=== PATIENT | male | born 1985 | race Caucasian/White ===

== ENCOUNTER 2020-12-02 13:06 | Day surgery (SDC) | payer BC ==
[2020-11-27 15:23] VITALS: BMI 26.9
[2020-12-02 13:25] VITALS: TEMP 98
[2020-12-02 16:09] VITALS: BP 110/78; PULSE 65
== END 2020-12-02 15:40 | disposition home or self-care (01) ==
LOC: FASU-ENDO 13:06
PROVIDERS: ATTEND Internal Medicine Gastroenterology
PROC: 0DB68ZX Excision of Stomach, Via Natural or Artificial Opening Endoscopic, Diagnostic (ICD-10-PCS; 2020-12-02)
PROC: 0DB48ZX Excision of Esophagogastric Junction, Via Natural or Artificial Opening Endoscopic, Diagnostic (ICD-10-PCS; 2020-12-02)
PROC: 0DB98ZX Excision of Duodenum, Via Natural or Artificial Opening Endoscopic, Diagnostic (ICD-10-PCS; principal; 2020-12-02 14:41)
DX: K29.50 Unspecified chronic gastritis without bleeding (principal); K20.90 Esophagitis, unspecified without bleeding; B96.81 Helicobacter pylori [H. pylori] as the cause of diseases classified elsewhere; R10.13 Epigastric pain; K92.0 Hematemesis

== ENCOUNTER 2021-11-11 04:10 | Inpatient (IN) | payer BC, OTHER ==
[2021-11-06 13:09] VITALS: BMI 28.8
[2021-11-11] MEDS ORDERED: PROPOFOL 20 ML ONE ×20 (07:27→11:49)
[2021-11-11] MEDS ORDERED: HYDROmorphone HCl 2 MG/ML VIAL ONE (07:27)
[2021-11-11] MEDS ORDERED: ceFAZolin SODIUM 1 GM VIAL ONE (07:31)
[2021-11-11] MEDS ORDERED: BACITRACIN 15 GM TUBE TOPICAL OINTMENT ONE (07:31)
[2021-11-11] MEDS ORDERED: THROMBIN (BOVINE) 20,000 UNIT VIAL TP ONE (07:31)
[2021-11-11] MEDS ORDERED: BUPIVACAINE HCL/PF 0.5% (5MG/ML) 10 ML VIAL ONE (07:31)
[2021-11-11] MEDS ORDERED: BUPIVACAINE HCL/PF 0.5% (5MG/ML) 10 ML VIAL IJ ONE ×3 (07:37→09:51)
[2021-11-11] MEDS ORDERED: MIDAZOLAM HCL 2 MG/2 ML SINGLE DOSE VIAL ONE (08:01)
[2021-11-11] MEDS ORDERED: ceFAZolin SODIUM 1 GM VIAL IVPB ONE ×3 (08:30→09:00)
[2021-11-11] MEDS ORDERED: ACETAMINOPHEN INJECTION 100 ML IVPB ONE (10:08)
[2021-11-11] MEDS ORDERED: DESFLURANE GAS 240 ML BOTTLE IH ONE (10:21)
[2021-11-11] MEDS ORDERED: SEVOFLURANE 250 ML BTL ONE (10:21)
[2021-11-11] MEDS ORDERED: SUCCINYLCHOLINE CHLORIDE 200 MG/10 ML SYRINGE ONE (10:26)
[2021-11-11] MEDS ORDERED: ONDANSETRON 4 MG/2 ML VIAL IVPUSH PRN (12:29)
[2021-11-11] MEDS ORDERED: HYDROmorphone *PCA* 10MG/50ML DISP.SYRIN PCA SCH (12:30)
[2021-11-11] MEDS ORDERED: FENTANYL CITRATE/PF 50 MCG/ML VIAL ONE ×3 (12:38→13:13)
[2021-11-11] MEDS ORDERED: HYDROmorphone *PCA* 10MG/50ML DISP.SYRIN ONE (13:11)
[2021-11-11] MEDS ORDERED: HYDROmorphone *PCA* 10MG/50ML DISP.SYRIN PCA ONE (13:25)
[2021-11-11] MEDS ORDERED: ONDANSETRON 4 MG/2 ML VIAL ONE (17:19)
[2021-11-11] MEDS ORDERED: ONDANSETRON 4 MG/2 ML VIAL IVPUSH ONE (17:20)
[2021-11-11] MEDS: LACTATED RINGERS SOLUTION 1,000 ML IV SCH ×2 (18:35→22:02)
[2021-11-11] MEDS: ONDANSETRON 4 MG/2 ML VIAL IVPUSH PRN (20:45)
[2021-11-11] MEDS ORDERED: METOCLOPRAMIDE HCL INJECTION 10 MG/2 ML VIAL IVPUSH ONE (21:39)
[2021-11-12] MEDS ORDERED: methylPREDNISolone NA SUCC 125 MG/2 ML VIAL ONE (05:36)
[2021-11-12] MEDS ORDERED: methylPREDNISolone NA SUCC 40 MG/1 ML VIAL IVPUSH PRN (06:03)
[2021-11-12 08:37] LABS: HEMATOCRIT 35.5 % (35.4-49); HEMOGLOBIN 12.7 GM/dL (11.7-16.9); MCH 30.5 pg (25.7-33.7); MCHC 35.7 g/dl (32.0-35.9); MEAN CELL VOLUME 85.4 fl (80-96); MEAN PLT VOLUME 7.5 fl (7.5-11.1); PLATELET COUNT 200 10^3/uL (134-434); RBC 4.15 M/mm3 (4.00-5.60); RDW 12.9 % (11.9-15.9)
[2021-11-12 08:58] LABS: BLOOD UREA NITROGEN 11.9 mg/dL (7-18); CALCIUM 8.6 mg/dL (8.5-10.1); MAGNESIUM 1.9 mg/dL (1.8-2.4)
[2021-11-12 09:04] LABS: CREATININE 0.9 mg/dL (0.55-1.3)
[2021-11-12] MEDS: PANTOPRAZOLE 40 MG TABLET PO SCH ×2 (10:03→10:08)
[2021-11-12] MEDS ORDERED: diphenhydrAMINE HCL 25 MG CAPSULE (FP) PO PRN (11:30)
[2021-11-12] MEDS ORDERED: ACETAMINOPHEN 325 MG TABLET (FP) PO PRN (12:00)
[2021-11-12] MEDS ORDERED: oxyCODONE HCL 5 MG TABLET PO PRN (12:00)
[2021-11-12] MEDS: POLYETHYLENE GLYCOL (HEALTHYLAX) 3350 17 GM PACKET PO SCH (12:47)
[2021-11-12] MEDS: oxyCODONE HCL 5 MG TABLET PO PRN ×2 (13:24→18:45)
[2021-11-12] MEDS: DOCUSATE SODIUM 100 MG CAPSULE (FP) PO PRN (13:26)
[2021-11-12] MEDS: ACETAMINOPHEN 325 MG TABLET (FP) PO PRN ×2 (13:26→18:49)
[2021-11-12] MEDS ORDERED: DEXTROSE 5%-WATER - 50 ML IVPB ONE ×2 (13:53→17:35)
[2021-11-12] MEDS ORDERED: ceFAZolin SODIUM 1 GM VIAL ONE ×2 (13:53→17:35)
[2021-11-12] MEDS: CEFAZOLIN 1 GM in DEXTROSE 5%-WATER - 50 ML IVPB SCH ×2 (13:56→17:41)
[2021-11-12] MEDS: morphine SULFATE 4 MG/ML VIAL IVPUSH PRN ×2 (14:29→20:31)
[2021-11-12] MEDS: OMEPRAZOLE 40MG CAPSULE PO SCH (15:24)
[2021-11-12] MEDS: LACTATED RINGERS SOLUTION 1,000 ML IV SCH (15:44)
[2021-11-12] MEDS: ONDANSETRON 4 MG/2 ML VIAL IVPUSH PRN (17:52)
[2021-11-12] MEDS ORDERED: diazePAM 5 MG TABLET PO ONE (20:30)
[2021-11-13] MEDS ORDERED: DEXTROSE 5%-WATER - 50 ML IVPB ONE ×2 (02:03→09:41)
[2021-11-13] MEDS ORDERED: ceFAZolin SODIUM 1 GM VIAL ONE ×2 (02:03→09:41)
[2021-11-13] MEDS: CEFAZOLIN 1 GM in DEXTROSE 5%-WATER - 50 ML IVPB SCH ×2 (02:24→09:48)
[2021-11-13] MEDS: morphine SULFATE 4 MG/ML VIAL IVPUSH PRN (02:34)
[2021-11-13] MEDS: LACTATED RINGERS SOLUTION 1,000 ML IV SCH (02:36)
[2021-11-13] MEDS: OMEPRAZOLE 40MG CAPSULE PO SCH (08:05)
[2021-11-13] MEDS: ONDANSETRON 4 MG/2 ML VIAL IVPUSH PRN (08:06)
[2021-11-13 08:57] LABS: BASO % 0.2 % (0-2.0); EOS % 0.1 % (0-4.5); HEMATOCRIT 37.3 % (35.4-49); HEMOGLOBIN 13.1 GM/dL (11.7-16.9); LYMPH % 14.4 % (8-40); MCH 30.1 pg (25.7-33.7); MCHC 35.1 g/dl (32.0-35.9); MEAN CELL VOLUME 85.9 fl (80-96); MEAN PLT VOLUME 6.9 fl (7.5-11.1); MONO % 6.8 % (3.8-10.2); NEUT % 78.5 % (42.8-82.8); PLATELET COUNT 193 10^3/uL (134-434); RBC 4.34 M/mm3 (4.00-5.60); RDW 12.7 % (11.9-15.9); WHITE BLOOD COUNT 13.2 K/mm3 (4.0-10.0)
[2021-11-13 09:24] LABS: ALBUMIN 3.7 g/dl (3.4-5.0); BLOOD UREA NITROGEN 8.7 mg/dL (7-18); CALCIUM 8.8 mg/dL (8.5-10.1)
[2021-11-13 09:27] LABS: CREATININE 0.9 mg/dL (0.55-1.3)
[2021-11-13 09:28] LABS: BILIRUBIN,DIRECT 0.3 mg/dL (0.0-0.2); BILIRUBIN,TOTAL 1.6 mg/dL (0.2-1); TOT PROT 6.5 g/dl (6.4-8.2)
[2021-11-13] MEDS: POLYETHYLENE GLYCOL (HEALTHYLAX) 3350 17 GM PACKET PO SCH (09:48)
[2021-11-13] MEDS: DOCUSATE SODIUM 100 MG CAPSULE (FP) PO PRN ×2 (09:48→19:11)
[2021-11-13] MEDS ORDERED: BISACODYL 5 MG TABLET.DR (FP) PO ONE (09:55)
[2021-11-13] MEDS: oxyCODONE HCL 5 MG TABLET PO PRN ×3 (10:57→23:17)
[2021-11-13] MEDS: ACETAMINOPHEN 325 MG TABLET (FP) PO PRN ×2 (10:58→19:12)
[2021-11-13] MEDS ORDERED: SODIUM PHOSPHATE/NA BIPHOS 133 ML ENEMA PR ONE (16:44)
[2021-11-13] MEDS: diazePAM 5 MG TABLET PO PRN (22:05)
[2021-11-14] MEDS: ACETAMINOPHEN 325 MG TABLET (FP) PO PRN ×3 (01:10→22:30)
[2021-11-14] MEDS: oxyCODONE HCL 5 MG TABLET PO PRN ×2 (04:30→10:16)
[2021-11-14] MEDS ORDERED: BISACODYL 10 MG SUPP.RECT PR ONE (08:00)
[2021-11-14] MEDS: OMEPRAZOLE 40MG CAPSULE PO SCH (08:10)
[2021-11-14] MEDS: POLYETHYLENE GLYCOL (HEALTHYLAX) 3350 17 GM PACKET PO SCH (10:16)
[2021-11-14] MEDS: DOCUSATE SODIUM 100 MG CAPSULE (FP) PO PRN (14:43)
[2021-11-14] MEDS: morphine SULFATE 4 MG/ML VIAL IVPUSH PRN (14:43)
[2021-11-14] MEDS: diazePAM 5 MG TABLET PO PRN (18:14)
[2021-11-15] MEDS: DOCUSATE SODIUM 100 MG CAPSULE (FP) PO PRN ×2 (00:56→07:40)
[2021-11-15] MEDS: oxyCODONE HCL 5 MG TABLET PO PRN (00:56)
[2021-11-15] MEDS: diazePAM 5 MG TABLET PO PRN ×3 (03:58→19:35)
[2021-11-15] MEDS: ACETAMINOPHEN 325 MG TABLET (FP) PO PRN ×3 (07:40→21:21)
[2021-11-15] MEDS: OMEPRAZOLE 40MG CAPSULE PO SCH (07:42)
[2021-11-15] MEDS: POLYETHYLENE GLYCOL (HEALTHYLAX) 3350 17 GM PACKET PO SCH (09:06)
[2021-11-15] MEDS ORDERED: BISACODYL 5 MG TABLET.DR (FP) PO ONE (09:39)
[2021-11-15] MEDS ORDERED: MAGNESIUM HYDROX 2400MG/30ML ORAL SUSPENSION 30 ML CUP PO ONE (09:39)
[2021-11-15] MEDS: DOCUSATE SODIUM 100 MG CAPSULE (FP) PO SCH ×2 (10:01→16:53)
[2021-11-15 11:28] LABS: BASO % 0.1 % (0-2.0); EOS % 0.2 % (0-4.5); HEMATOCRIT 36.9 % (35.4-49); HEMOGLOBIN 12.5 GM/dL (11.7-16.9); LYMPH % 11.1 % (8-40); MCH 29.4 pg (25.7-33.7); MCHC 33.9 g/dl (32.0-35.9); MEAN CELL VOLUME 86.8 fl (80-96); MEAN PLT VOLUME 7.5 fl (7.5-11.1); MONO % 5.8 % (3.8-10.2); NEUT % 82.8 % (42.8-82.8); PLATELET COUNT 234 10^3/uL (134-434); RBC 4.24 M/mm3 (4.00-5.60); RDW 12.5 % (11.9-15.9); WHITE BLOOD COUNT 11.9 K/mm3 (4.0-10.0)
[2021-11-15 11:46] LABS: CALCIUM 9.2 mg/dL (8.5-10.1)
[2021-11-15 11:47] LABS: ALBUMIN 3.5 g/dl (3.4-5.0); BLOOD UREA NITROGEN 5.5 mg/dL (7-18)
[2021-11-15 11:50] LABS: CREATININE 0.8 mg/dL (0.55-1.3)
[2021-11-15 11:51] LABS: BILIRUBIN,TOTAL 0.8 mg/dL (0.2-1); TOT PROT 7.1 g/dl (6.4-8.2)
[2021-11-15] MEDS ORDERED: oxyCODONE HCL 5 MG TABLET PO PRN (21:07)
[2021-11-16] MEDS: DOCUSATE SODIUM 100 MG CAPSULE (FP) PO SCH ×2 (02:38→10:05)
[2021-11-16] MEDS: ACETAMINOPHEN 325 MG TABLET (FP) PO PRN ×3 (02:39→16:38)
[2021-11-16] MEDS: OMEPRAZOLE 40MG CAPSULE PO SCH (10:05)
[2021-11-16] MEDS: POLYETHYLENE GLYCOL (HEALTHYLAX) 3350 17 GM PACKET PO SCH (10:06)
[2021-11-16 15:41] VITALS: BP 159/95; PULSE 82; TEMP 98.7
== END 2021-11-16 18:11 | disposition home or self-care (01) | DRG 304 ==
LOC: J2C 04:10 → J8W 18:10
PROVIDERS: ADMIT Neurological Surgery; ATTEND Internal Medicine
PROC: 0SG0071 Fusion of Lumbar Vertebral Joint with Autologous Tissue Substitute, Posterior Approach, Posterior Column, Open Approach (ICD-10-PCS; 2021-11-11)
PROC: 0SB20ZZ Excision of Lumbar Vertebral Disc, Open Approach (ICD-10-PCS; 2021-11-11)
PROC: 4A10X4G Monitoring of Central Nervous Electrical Activity, Intraoperative, External Approach (ICD-10-PCS; 2021-11-11)
PROC: 0SG00AJ Fusion of Lumbar Vertebral Joint with Interbody Fusion Device, Posterior Approach, Anterior Column, Open Approach (ICD-10-PCS; principal; 2021-11-11 08:00)
DX: M48.061 Spinal stenosis, lumbar region without neurogenic claudication (principal); M43.16 Spondylolisthesis, lumbar region; K21.9 Gastro-esophageal reflux disease without esophagitis; M54.32 Sciatica, left side; K59.00 Constipation, unspecified
CPT/HCPCS: 36415; 72100-TC-FY; 76000-TC-FY; 80048; 80053; 80076; 83735; 85025; 85027; 94760; 97116-GP; 97162-GP